=== PATIENT | female | born 1960 | race African-American/Black ===

== ENCOUNTER → 2021-05-07 14:38 | Outpatient (CLI) | payer MEDICAID, SELFPAY ==
--- NOTE | 2021-05-07 14:40 | RAD_ITS ---
STUDY: X-RAY - RIGHT KNEE REASON FOR EXAM: Female, 60 years old. Knee pain. TECHNIQUE: 4 view(s) of the knee. COMPARISON: None. FINDINGS: Osteopenia. Small superior patellar spur. Revision 3 component total knee arthroplasty in anatomic alignment. Lateral tilt of the patella on the sunrise view. Focal soft tissue calcification in Hoffa''s fat pad. Diffuse soft tissue swelling. RAD/Knee 4 or More Views IMPRESSION: Uncomplicated revision total knee arthroplasty in anatomic alignment. Lateral tilt of the patella on the sunrise view. Focal calcification in Hoffa''s fat pad. Diffuse soft tissue swelling. Electronically Signed: Juaquin Garg MD at 9:28 EST , Service support ,
--- NOTE | 2021-05-07 14:56 | RAD_ITS ---
STUDY: X-RAY - LEFT KNEE REASON FOR EXAM: Female, 60 years old. Knee pain. TECHNIQUE: 4 view(s) of the knee. COMPARISON: None. FINDINGS: Osteopenia. Small superior patellar spur. Revision 3 component total knee arthroplasty in anatomic alignment. Lucency surrounding the methyl methacrylate of the tibial component of the arthroplasty. Lateral tilt and subluxation of the patella on the sunrise view. RAD/Knee 4 or More Views IMPRESSION: ReVision total knee arthroplasty in anatomic alignment. Lucency surrounding the methyl methacrylate of the tibial component of the revision arthroplasty. Lateral tilt and subluxation of the patella on the sunrise view. Focal calcification in Hoffa''s fat pad. Diffuse soft tissue swelling. Electronically Signed: Juaquin Garg MD at 9:29 EST , Service support ,
== END ==
PROVIDERS: PCP Internal Medicine Infectious Disease; Referring Provider Orthopaedic Surgery; Visit Provider Orthopaedic Surgery
DX: M25.562 Pain in left knee (principal); Z96.651 Presence of right artificial knee joint; Z96.652 Presence of left artificial knee joint
CPT/HCPCS: 73564